=== PATIENT | female | born 2000 | race Caucasian/White ===

== ENCOUNTER 2021-07-18 11:05 | Outpatient (CLI) | payer OTHER, SELFPAY ==
[2021-07-18 11:38] LABS: CRP < 0.5 mg/dL (<1.0)
== END 2021-07-18 11:06 | disposition home or self-care (01) ==
PROVIDERS: Visit Provider Internal Medicine Gastroenterology
DX: K92.1 Melena (principal); K59.00 Constipation, unspecified
CPT/HCPCS: 36415; 84443; 86140